=== PATIENT | male | born 1925 | race Caucasian/White ===

== ENCOUNTER 2016-03-11 00:04 | Inpatient (IN) | payer MEDICARE, OTHER ==
[2016-03-11] VITALS (11 sets, daily range): BP systolic 115–181; BP diastolic 52–84; PULSE 52–92; RESP 16–20; TEMP 96.5–98.9; O2SAT 95–100
[~2016-03-11] VITALS: Ht 185.4 cm; Wt 82.3 kg
[~2016-03-11 00:04] MED LIST: CORE12.5 PO; ECOT81TA2 PO; RAMI5CAP7 PO; ROSU10 PO
[2016-03-11] MEDS ORDERED: ASPI81TA11 PO (00:41)
[2016-03-11] MEDS ORDERED: CARV10 PO (00:41)
[2016-03-11] MEDS ORDERED: ATOR20TA15 PO (00:41)
[2016-03-11] MEDS ORDERED: RAMI10CA PO (00:41)
--- NOTE | 2016-03-11 01:03 | RADHPO ---
EXAM DATE/TIME: 03/11/2016 00:37 [facility] COMPARISON: No previous studies available for comparison. INDICATIONS : Right hip pain post fall 2 hours ago MEDICAL HISTORY : None. SURGICAL HISTORY : None. ENCOUNTER: Initial ACUITY: 1 day PAIN SCORE: 10/10 LOCATION: Right hip FINDINGS: Examination of the right hip was performed with AP Pelvis. There is a nondisplaced fracture through t he neck of the proximal right femur. The femoral head remains within the acetabulum. The bony structu res of the pelvis are grossly intact. There are degenerative changes of the lower lumbar spine. There is good alignment of the SI joint and pubic symphysis. CONCLUSION: Nondisplaced fracture through the neck of the proximal right femur. Malcolm Rivera MD on March 11, 2016 at 1:00 Board Certified Radiologist. This report was verified electronically.
[2016-03-11] MEDS ORDERED: MORPHINE SULFATE 4 MG/ML INJ IV PUSH ONE (01:30)
[2016-03-11] MEDS: ONDANSETRON HCL 4 MG/2 ML VIAL IVP ONE ×2 (01:30→03:22)
[2016-03-11] MEDS ORDERED: SODIUM CHLORIDE 0.9% FLUSH 5 ML FLUSH IVF PRN ×2 (01:30→18:15)
[2016-03-11 01:49] LABS: AUTOMATED NEUTROPHIL # 9.3 TH/MM3 (1.8-7.7); BASOPHIL % 0.2 % (0.0-2.0); EOSINOPHIL # 0.2 TH/MM3 (0-0.4); EOSINOPHIL % 1.5 % (0.0-4.0); HEMATOCRIT 27.8 % (39.0-51.0); HEMO FLAGS DIFF FINAL; LYMPH % 8.8 % (9.0-44.0); MEAN CELL VOLUME 99.3 FL (80.0-100.0); MEAN CORPUSCULAR HEMOGLOBIN 33.1 PG (27.0-34.0); MEAN CORPUSCULAR HGB CONC 33.3 % (32.0-36.0); MONO % 9.5 % (0.0-8.0); PLATELET COUNT 144 TH/MM3 (150-450); WHITE BLOOD COUNT 11.6 TH/MM3 (4.0-11.0)
--- NOTE | 2016-03-11 01:51 | RADHPO ---
EXAM DATE/TIME: 03/11/2016 01:30 [facility] COMPARISON: No previous studies available for comparison. INDICATIONS : Trauma to chest post fall today MEDICAL HISTORY : Cardiovascular disease. SURGICAL HISTORY : Stent placement ENCOUNTER: Initial ACUITY: 1 day PAIN SCORE: 0/10 LOCATION: Bilateral chest FINDINGS: A single view of the chest demonstrates the lungs to be symmetrically aerated without evidence of mas s, infiltrate or effusion. The cardiomediastinal contours are unremarkable. Osseous structures are intact. CONCLUSION: No acute disease. Malcolm Rivera MD on March 11, 2016 at 1:50 Board Certified Radiologist. This report was verified electronically.
[2016-03-11 01:55] LABS: CHLORIDE 109 MEQ/L (98-107); POTASSIUM 4.4 MEQ/L (3.5-5.1); SODIUM (NA) 143 MEQ/L (136-145)
--- NOTE | 2016-03-11 01:57 | PD ---
HPI Chief Complaint: Hip Injury Time Seen by Provider: 01:21 Travel History International Travel<30 days: No Contact w/Intl Traveler<30days: No Traveled to known affect area: No History of Present Illness HPI The patient is an 89-year-old male that fell at 11:15 tonight, lost balance and fell, and complains of right hip pain and inability to walk since. His medical problems include heart disease for which he is followed by Dr. Coto, Waldenstroms's macroglobulinemia, elevated cholesterol and possible hypertension. 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 Coto in one year. He is not on any anticoagulants except for aspirin. PFSH Past Medical History High Cholesterol: Yes Diminished Hearing: Yes (BILAT HEARING AIDS) Hypertension: Yes Medical other: Yes (WALDENSTROM'S DISEASE) Ulcer: Yes (macular degeneration) Influenza Vaccination: Yes Past Surgical History Cardiac Surgery: Yes (stents) Other Surgery: Yes (hemmrhoidectomy) Social History Alcohol Use: Yes (OCC) Tobacco Use: No (SMOKED CIGARS IN THE PAST) Substance Use: No Allergies-Medications (Allergen,Severity, Reaction): Coded Allergies: No Known Allergies (Verified , 03/11/16) Reported Meds & Prescriptions Reported Meds & Active Scripts Active Reported Atorvastatin (Atorvastatin Calcium) 20 Mg Tab 20 Mg PO HS Coreg Cr 24 HR (Carvedilol) 10 Mg Cap 10 Mg PO DAILY Ramipril 10 Mg Cap 10 Mg PO BID Aspirin EC (Aspirin) 81 Mg Tabdr 81 Mg PO DAILY Review of Systems Except as stated in HPI: all other systems reviewed are Neg Physical Exam Narrative GENERAL: Well-nourished, well-developed patient in moderate apparent distress with her left knee and left ankle pain. His vital signs are normal. He is alert and oriented 3. He is slightly hard of hearing. SKIN: Warm and dry. HEAD: Normocephalic. EYES: No scleral icterus. No injection or drainage. NECK: Supple, trachea midline. No JVD or lymphadenopathy. CARDIOVASCULAR: Regular rate and rhythm without murmurs, gallops, or rubs. RESPIRATORY: Breath sounds equal bilaterally. No accessory muscle use. Lungs clear to auscultation bilaterally. GASTROINTESTINAL: Abdomen soft, non-tender, nondistended. MUSCULOSKELETAL: No cyanosis, or edema. There is tenderness over the left hip and very minimal foreshortening present. Good capillary refill and pinprick is present distally on the left foot. BACK: Nontender without obvious deformity. No CVA tenderness. Data Data Last Documented VS Vital Signs Date Time Temp Pulse Resp B/P Pulse Ox O2 Delivery O2 Flow Rate FiO2 03/11/16 00:30 76 18 03/11/16 00:18 98.8 115/62 95 Orders Hip, Uni(Ap&Lat) W Ap Pelvis (03/11/16 ) Complete Blood Count With Diff (03/11/16 01:21) Comprehensive Metabolic Panel (03/11/16 01:21) Prothrombin Time / Inr (Pt) (03/11/16 01:21) Act Partial Throm Time (Ptt) (03/11/16 01:21) Urinalysis - C+S If Indicated (03/11/16 01:21) Chest, Single Ap (03/11/16 01:21) Iv Access Insert/Monitor (03/11/16 01:21) Oximetry (03/11/16 01:21) Ecg Monitoring (03/11/16 01:21) Morphine Inj (Morphine Inj) (03/11/16 01:30) Ondansetron Inj (Zofran Inj) (03/11/16 01:30) Sodium Chloride 0.9% Flush (Ns Flush) (03/11/16 01:30) Electrocardiogram (03/11/16 ) MDM Medical Decision Making Medical Screen Exam Complete: Yes Emergency Medical Condition: Yes Medical Record Reviewed: Yes Interpretation(s) X-ray show nondisplaced fracture through the neck of the proximal right femur. Differential Diagnosis Contusion hip, fractured hip, dislocation hiphighly unlikely, fracture pelvis Narrative Course The patient has a fracture of his right hip. He will be put in Emanuel's traction 5 pounds, kept nothing by mouth and admitted to the [facility] service with Dr. Loi Schneider consulting. Physician Communication Physician Communication I discussed the patient with doctors Kevin, Loi Yoon, Dr. Lai and Dr. Garibay. Dr. Cook no longer does hips and referred the patient to the on-call orthopedist. Dr. Brown uses the [facility] service for admissions now. The patient will be admitted to [facility], put in Emanuel's traction5 pounds, Nothing by mouth and admitted to the [facility] service. Diagnosis Primary Impression: Fracture of femoral neck, right Jim Campuzano MD Mar 11, 2016 01:57
[2016-03-11 01:59] LABS: ANION GAP 7 MEQ/L (5-15); APTT (PATIENT) 24.3 SEC (24.3-30.1); BLOOD UREA NITROGEN 30 MG/DL (7-18); PROTHROMBIN TIME - PATIENT 11.4 SEC (9.8-11.6)
[2016-03-11 02:02] LABS: ALT (GPT) 25 U/L (12-78); AST (GOT) 22 U/L (15-37); GLOMERULAR FILTRATION RATE 71 ML/MIN (>89)
[2016-03-11 02:03] LABS: TOTAL BILIRUBIN ADULT 0.5 MG/DL (0.2-1.0)
[2016-03-11 02:04] LABS: ALKALINE PHOSPHATASE 115 U/L (45-117)
[2016-03-11] MEDS ORDERED: SODIUM CHLOR 0.9% 1000 ML INJ 1,000 ML IV SCH ×2 (02:15→09:30)
[2016-03-11 03:06] LABS: BLOOD, URINE NEG (NEG); GLUCOSE,URINE NEG (NEG); KETONE, URINE NEG (NEG); NITRITE,URINE NEG (NEG); PH, URINE 5.5 (5.0-8.5)
[2016-03-11 03:14] LABS: COMMENT (UR) CATH-CULT NOT IND; CULTURE IF INDICATED CATH CULTURE NOT IND; RBC, URINE 0-2 /hpf (0-3); SQUAMOUS EPITHELIAL CELL URINE 0-5 /hpf (0-5); URINE COLOR YELLOW (YELLW/STRAW); WBC, URINE 0-2 /hpf (0-5)
[2016-03-11] MEDS ORDERED: NALOXONE HCL 0.4 MG/ML AMP IV PRN ×2 (03:15→18:15)
[2016-03-11] MEDS ORDERED: SODIUM CHLORIDE 0.9% FLUSH 5 ML FLUSH FLUSH PRN (03:15)
[2016-03-11] MEDS ORDERED: ONDANSETRON HCL 4 MG/2 ML VIAL IVP PRN ×2 (03:15→18:15)
[2016-03-11] MEDS ORDERED: MORPHINE SULFATE 4 MG/ML INJ IV PUSH PRN (03:15)
[2016-03-11] MEDS: MORPHINE SULFATE 4 MG/ML INJ IV PUSH PRN ×4 (03:23→16:03)
[2016-03-11] MEDS: SODIUM CHLORIDE 0.9% FLUSH 5 ML FLUSH FLUSH SCH ×2 (03:23→08:18)
--- NOTE | 2016-03-11 05:09 | HHI.HP ---
[facility] Service [facility] Primary Care Physician Sweetie Rios MD Admission Diagnosis right hip fracture Diagnoses: Travel History International Travel<30 Days: No Contact w/Intl Traveler <30 Da: No Traveled to Known Affected Are: No History of Present Illness History from patient, ER physician communication, and review of medical records. Patient reported that at home, he somehow lost balance and fell onto his right hip. He states that he does have poor balance because of his hearing problems. He however denies loss of consciousness. denies any premonitory symptoms prior to this fall such as chest pain/ palpitations/shortness of breath/focal weakness. Patient is also a gentleman who is quite healthy and lives with his and is still driving. Patient initially presented to [facility] emergency room. Next and workup there revealed right hip fracture. His case was discussed with orthopedics on-call by ER physician. Patient was transferred to the main hospital for surgical intervention. Patient denies any prior history of anesthesia problems. Apart from the above, patient denies any recent fever/nausea/vomiting/diarrhea/ urinary burning or pain on urination. He denies any blood in his stool or in his urine. He is on a baby aspirin at home twice a day. Apart from that he does not take any blood thinners. 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 Did see auxiliary equipment tender. Anemia Past Surgical History Coronary angiogram and stenting Hernia repair Bone marrow biopsies Reported Medications Medications listed in EMRreviewed Allergies: Coded Allergies: No Known Allergies (Verified , 03/11/16) Family History Reports a family history of hypertension Social History Denies smoking/alcohol abuse/drug abuse Physical Exam Vital Signs Vital Signs Date Time Temp Pulse Resp B/P Pulse Ox O2 Delivery O2 Flow Rate FiO2 03/11/16 03:32 88 18 162/84 99 03/11/16 02:45 88 18 166/84 98 Nasal Cannula 2 03/11/16 02:20 18 98 Nasal Cannula 2 03/11/16 01:45 16 95 Room Air 03/11/16 01:45 78 18 159/65 95 Room Air 03/11/16 00:30 76 18 03/11/16 00:18 98.8 76 20 115/62 95 Physical Exam GENERAL: This is a well-nourished, well-developed patient, in no apparent distress. SKIN: No rashes, ecchymoses or lesions. Cool and dry. HEAD: Atraumatic. Normocephalic. No temporal or scalp tenderness. EYES: No scleral icterus. No injection or drainage. ENT: Nose without bleeding, purulent drainage or septal hematoma. Airway patent. NECK: Trachea midline. No JVD CARDIOVASCULAR: Regular rate and rhythm without murmurs, gallops, or rubs. RESPIRATORY: Clear to auscultation. Breath sounds equal bilaterally. No wheezes , rales, or rhonchi. GASTROINTESTINAL: Abdomen soft, non-tender, nondistended. No guarding. MUSCULOSKELETAL: Extremities without clubbing, cyanosis, or edema. No calf tenderness. Right lower extremity in traction. Intact sensation NEUROLOGICAL: Awake and alert. Normal speech. Laboratory Laboratory Tests Test 03/11/16 03/11/16 01:40 03:00 White Blood Count 11.6 Red Blood Count 2.80 Hemoglobin 9.3 Hematocrit 27.8 Mean Corpuscular Volume 99.3 Mean Corpuscular Hemoglobin 33.1 Mean Corpuscular Hemoglobin 33.3 Concent Red Cell Distribution Width 14.0 Platelet Count 144 Mean Platelet Volume 8.5 Neutrophils (%) (Auto) 80.0 Lymphocytes (%) (Auto) 8.8 Monocytes (%) (Auto) 9.5 Eosinophils (%) (Auto) 1.5 Basophils (%) (Auto) 0.2 Neutrophils # (Auto) 9.3 Lymphocytes # (Auto) 1.0 Monocytes # (Auto) 1.1 Eosinophils # (Auto) 0.2 Basophils # (Auto) 0.0 CBC Comment DIFF FINAL Differential Comment Prothrombin Time 11.4 Prothromb Time International 1.0 Ratio Activated Partial 24.3 Thromboplast Time Sodium Level 143 Potassium Level 4.4 Chloride Level 109 Carbon Dioxide Level 27.0 Anion Gap 7 Blood Urea Nitrogen 30 Creatinine 1.00 Estimat Glomerular Filtration 71 Rate Random Glucose 98 Calcium Level 8.7 Total Bilirubin 0.5 Aspartate Amino Transf 22 (AST/SGOT) Alanine Aminotransferase 25 (ALT/SGPT) Alkaline Phosphatase 115 Total Protein 6.4 Albumin 3.3 Urine Color YELLOW Urine Turbidity CLEAR Urine pH 5.5 Urine Specific [place] 1.012 Urine Protein NEG Urine Glucose (UA) NEG Urine Ketones NEG Urine Occult Blood NEG Urine Nitrite NEG Urine Bilirubin NEG Urine Leukocyte Esterase NEG Urine RBC 0-2 Urine WBC 0-2 Urine Squamous Epithelial 0-5 Cells Urine Bacteria NONE Microscopic Urinalysis Comment CATH-CULT NOT IND Result Diagram: 03/11/16 0140 03/11/16 0140 Imaging Last 48 hours Impressions Chest X-Ray 03/11/16 0121 Signed Impressions: Service Date/Time: February 01:30 - CONCLUSION: No acute disease. Malcolm Rivera MD Hip and Pelvis X-Ray 03/11/16 0000 Signed Impressions: Service Date/Time: February 00:37 - CONCLUSION: Nondisplaced fracture through the neck of the proximal right femur. Malcolm Rivera MD Assessment and Plan Problem List: (1) Fracture of femoral neck, right ICD Code: S72.001A Status: Acute Assessment and Plan Impression: mechanical fall Right femoral neck fracture Plan: Orthopedics was consulted. nothing by mouth. OR in a.m. Pain control. Resume home meds. DVT prophylaxiswith SCD. Discussed Condition With Patient, ER physician, patient's nurse Physician Certification 2 Midnight Certification Type: Admission for Inpatient Services Order for Inpatient Services The services are ordered in accordance with Medicare regulations or non- Medicare payer requirements, as applicable. In the case of services not specified as inpatient-only, they are appropriately provided as inpatient services in accordance with the 2-midnight benchmark. Estimated LOS (days): 3 days is the estimated time the patient will need to remain in the hospital, assuming treatment plan goals are met and no additional complications. Post-Hospital Plan: Not yet determined Eliseo Garibay MD Mar 11, 2016 05:09
[2016-03-11] MEDS: RAMIPRIL 5 MG CAP PO SCH ×2 (08:17→22:17)
[2016-03-11] MEDS: CARVEDILOL 3.125 MG TAB PO SCH ×2 (08:17→22:17)
--- NOTE | 2016-03-11 09:29 | HHI.PR ---
Subjective Remarks in no acute distress. pain to the right hip is moderate. d/w the RN. Objective Vitals Vital Signs Date Time Temp Pulse Resp B/P Pulse Ox O2 Delivery O2 Flow Rate FiO2 03/11/16 08:00 98.9 85 20 146/65 96 03/11/16 04:00 96.7 92 20 181/79 95 03/11/16 03:32 88 18 162/84 99 03/11/16 02:45 88 18 166/84 98 Nasal Cannula 2 03/11/16 02:20 18 98 Nasal Cannula 2 03/11/16 01:45 16 95 Room Air 03/11/16 01:45 78 18 159/65 95 Room Air 03/11/16 00:30 76 18 03/11/16 00:18 98.8 76 20 115/62 95 I/O 03/10/16 03/10/16 03/10/16 03/11/16 03/11/16 03/11/16 07:00 15:00 23:00 07:00 15:00 23:00 Intake Total 1000 ml Balance 1000 ml Intake IV Total 1000 ml Result Diagram: 03/11/16 0140 03/11/16 0140 Imaging Last Impressions Chest X-Ray 03/11/16 0121 Signed Impressions: Service Date/Time: February 01:30 - CONCLUSION: No acute disease. Malcolm Rivera MD Hip and Pelvis X-Ray 03/11/16 0000 Signed Impressions: Service Date/Time: February 00:37 - CONCLUSION: Nondisplaced fracture through the neck of the proximal right femur. Malcolm Rivera MD Objective Remarks GENERAL: This is a well-nourished, well-developed patient, in no apparent distress. CARDIOVASCULAR: Regular rate and regular rhythm without murmurs, gallops, or rubs. RESPIRATORY: Clear to auscultation. Breath sounds equal bilaterally. No wheezes , rales, or rhonchi. GASTROINTESTINAL: Abdomen soft, non-tender, nondistended. Normal, active bowel sounds MUSCULOSKELETAL: Extremities without clubbing, cyanosis, or edema. NEURO: Alert & Oriented x4 to person, place, time, situation. Moves all ext x4 Procedures none Medications and IVs Current Medications Morphine Sulfate (Morphine Inj) 4 mg ONCE ONCE IV PUSH ; Start 03/11/16 at 01: 30; Stop 03/11/16 at 01:31; Status DC Ondansetron HCl (Zofran Inj) 4 mg ONCE ONCE IVP Last administered on 03:22; Start 03/11/16 at 01:30; Stop 03/11/16 at 01:31; Status DC IV Flush 2 ml 2 ml UNSCH PRN IVF FLUSH AFTER USING IV ACCESS; Start 03/11/16 at 01:30; Stop 03/11/16 at 03:19; Status DC Sodium Chloride (NS 1000 ml Inj) 1,000 ml @ 2,000 mls/hr Q30M IV Last administered on 03/11/16 02:18; Start 03/11/16 at 02:15; Stop 03/11/16 at 02:44 ; Status DC IV Flush (NS Flush) 2 ml UNSCH PRN FLUSH FLUSH AFTER USING IV ACCESS; Start at 03:15 IV Flush (NS Flush) 2 ml BID FLUSH Last administered on 03/11/16 08:18; Start 03/11/16 at 09:00 Ondansetron HCl (Zofran Inj) 4 mg Q6H PRN IVP NAUSEA OR VOMITING; Start at 03:15 Naloxone HCl (Narcan Inj) 0.4 mg UNSCH PRN IV SEE LABEL COMMENTS; Start at 03:15 Morphine Sulfate (Morphine Inj) 2 mg Q3H PRN IV PUSH pain >5; Start 03/11/16 at 03:15; Stop 03/11/16 at 03:15; Status DC Atorvastatin Calcium (Lipitor) 20 mg HS PO ; Start 03/11/16 at 21:00 Ramipril (Altace) 10 mg BID PO Last administered on 03/11/16 08:17; Start at 09:00 Carvedilol (Coreg) 3.125 mg BID PO Last administered on 03/11/16 08:17; Start 03/11/16 at 09:00 Morphine Sulfate (Morphine Inj) 1 mg Q3H PRN IV PUSH pain >5 Last administered on 03/11/16 03:23; Start 03/11/16 at 03:15 A/P Assessment and Plan A/P - right hip fracture after a fall NPO for now- start IV fluid- continue pain control and consult ortho -CAD- s/p stent placement; hold aspirin- continue other home meds -DVT prophylaxis; SCD's till ortho evaluation. Jay Newell MD Mar 11, 2016 09:29
[2016-03-11] MEDS ORDERED: ENALAPRILAT 1.25 MG/ML VIAL IV PUSH PRN (09:30)
[2016-03-11] MEDS ORDERED: GENTAMICIN SULFATE 80 MG/2 ML VIAL ONE (10:44)
[2016-03-11] MEDS ORDERED: PROPOFOL 200 MG/20 ML AMP IV ONE (12:00)
[2016-03-11] MEDS ORDERED: ePHEDrine/NS 25 MG/5 ML SYR IV ONE (12:00)
[2016-03-11] MEDS ORDERED: PHENYLEPH/NS 1000 MCG/10 ML SYR IV ONE (12:00)
[2016-03-11] MEDS ORDERED: NEOSTIGMINE 3 MG/3 ML SYR IV ONE (12:00)
[2016-03-11] MEDS ORDERED: LACTATED RINGER'S 1000 ML INJ 2,000 ML IV ONE (13:00)
[2016-03-11] MEDS ORDERED: ONDANSETRON HCL 4 MG/2 ML VIAL IV PUSH ONE (13:00)
--- NOTE | 2016-03-11 16:21 | EKG ---
Date Performed: 03/11/2016 Time Performed: 01:43:24 PTAGE: 89 years EKG: Sinus rhythm Left bundle branch block Compared to prior tracing no significant change Abnormal ECG PREVIOUS TRACING : 09/21/2006 11.25 DOCTOR: Vamsi Oconnor Interpretating Date/Time 03/11/2016 16:19:54
[2016-03-11] MEDS: LACTATED RINGER'S 1000 ML INJ 1,000 ML IV SCH (18:05)
[2016-03-11] MEDS ORDERED: NORC5TAB PO (18:08)
[2016-03-11] MEDS ORDERED: XARE10TA PO (18:09)
[2016-03-11] MEDS ORDERED: ACETAMINOPHEN/HYDROcodone 325 MG/5 MG TAB PO PRN (18:15)
[2016-03-11] MEDS ORDERED: ALUMINUM/MAGNESIUM/SIMETH 30 ML CUP PO PRN (18:15)
[2016-03-11] MEDS ORDERED: BISACODYL 10 MG SUPP PR PRN (18:15)
[2016-03-11] MEDS ORDERED: TEMAZEPAM 15 MG CAP PO PRN (18:15)
[2016-03-11] MEDS ORDERED: MORPHINE SULFATE 30 MG/30 ML PCA IV SCH (18:15)
[2016-03-11] MEDS ORDERED: MORPHINE SULFATE 8 MG/ML INJ IM PRN (18:15)
[2016-03-11] MEDS ORDERED: Post-op Orders (for Pharmacy) MISC XX ONE (18:15)
[2016-03-11] MEDS ORDERED: GENTAMICIN SULFATE 80 MG/2 ML VIAL IRRIGATION ONE (19:06)
--- NOTE | 2016-03-11 19:21 | PD.OP ---
cc: Loi Freedman MD Operative Report Date of Surgery: Mar 11, 2016 Preoperative Diagnosis: Fracture right femoral neck, subcapital Postoperative Diagnosis: Same Procedure: Right hip bipolar hemiarthroplasty, cemented Anesthesia: Gen. Surgeon: Loi Freedman Flight Attendant Inflight Services(s): RICHIE Castillo Operation and Findings: EBL: 800 cc INDICATION: This patient is an 89-year-old white male who fell sustaining a displaced right subcapital femoral neck fracture. He presents for surgical treatment. NOTE: Tammie Castillo PA-C was present for the entire surgical procedure as my nurse first aid. In my medical opinion her skill and care was necessary for the proper management of this patient. COMPONENTS: COMPANY: [employer] CUP: Bipolar, 57 mm STEM: Size 5, [place], cemented HEAD: 28 mm, + 5 neck length, 14 taper PROCEDURE: This patient was brought to the operating room and anesthetized in the supine position and positioned on the routine table in the clean air suite. The patient was then rolled to a right side up lateral position and held with a Biomet hip positioner. The right hip and leg was scrubbed with alcohol followed by Hibiclens followed by chloro prep and draped sterilely. A timeout was done and antibiotics were given within a routine time window. A 4 inch incision was made starting along the posterior one third of the greater trochanter. The iliotibial band was opened in line with the incision. The Charnley retractors were positioned. The posterior capsule and external rotators were taken down together in a sleeve. The fracture was exposed. The head was removed. The neck was cut at the right location. The acetabulum was inspected. All loose bone fragments were removed. Retractors were positioned allowing good visualization of the proximal femur. A box osteotome was utilized followed by progressive broaching for the stem. This was progressively broached until the final size stem.. A trial reduction showed adequate fit with the final bipolar head and neck length. Stability was excellent. Offset was satisfactory. Leg length was reestablished. At 90 of flexion it was stable to 70 of internal rotation. The hip could not be subluxed anteriorly. The canal was irrigated copiously. This was then plugged with a #4 [place] cement restrictor. 2 packs of methylmethacrylate were mixed on the back table. The canal was irrigated and dried. The cement was injected and pressurized. The final stem was inserted and the cement was allowed to dry. The final head and bipolar component was assembled and impacted. The hip was reduced and stability, offset and leg length was as previously noted. The posterior capsule and external rotators were repaired through bone with interrupted #2 Tycron sutures. The piriformis muscle was repaired with the same. The iliotibial band with interrupted #1 Vicryl sutures. Subcutaneous tissue was approximated with 2-0 Vicryl suture and skin with running intradermal 3-0 Vicryl followed by Steri-Strips and benzoin. A sterile dressing was applied.. The sponge count needle counts and instrument counts were all correct. The patient was awakened and taken to the recovery room in satisfactory condition FINDINGS: This patient had a moderate amount of bleeding which was felt be related to the patient's use of aspirin on a daily basis. Most of the bleeding was from the canal. The wound was dry at the end of the procedure. Stability was excellent. No complication was appreciated. The sciatic nerve was palpated to be deep from the dissection during the operation. Loi Freedman MD Mar 11, 2016 19:21
[2016-03-11] MEDS ORDERED: DO NOT ADM ANY ANTICOAGULANT DRUGS XX PRN (19:45)
[2016-03-11] MEDS ORDERED: fentaNYL CITRATE 250 MCG/5 ML AMP ONE (19:57)
--- NOTE | 2016-03-11 20:39 | RADRPT ---
EXAM DATE/TIME: 03/11/2016 19:50 [facility] COMPARISON: No previous studies available for comparison. INDICATIONS : Post hardware placement right hip MEDICAL HISTORY : None. SURGICAL HISTORY : None. ENCOUNTER: Initial ACUITY: 1 day PAIN SCORE: Non-responsive. LOCATION: Right Hip FINDINGS: Single frontal view the right hip reveal total hip are plasty. Hardware is intact alignment is anatom ic. Adjacent pelvis appears unremarkable. CONCLUSION: Satisfactory post right PATRICIA Grzegorz Moran MD on March 11, 2016 at 20:37 Board Certified Radiologist. This report was verified electronically.
[2016-03-11] MEDS: SODIUM CHLORIDE 0.9% FLUSH 5 ML FLUSH IVF SCH (21:00)
[2016-03-11] MEDS: PCA - TOTAL MG MORPHINE DELIVERED PER SHIFT SCH (22:00)
[2016-03-11] MEDS: ATORVASTATIN 20 MG TAB PO SCH (22:17)
[2016-03-12] VITALS (13 sets, daily range): BP systolic 41–132; BP diastolic 44–53; PULSE 71–93; RESP 15–19; TEMP 96.5–100.1; O2SAT 94–100
[2016-03-12] MEDS: PCA - TOTAL MG MORPHINE DELIVERED PER SHIFT SCH (05:28)
[2016-03-12 05:47] LABS: REVIEW FLAG FINAL
[2016-03-12 05:54] LABS: HEMATOCRIT 20.3 % (39.0-51.0)
[2016-03-12] MEDS ORDERED: FUROSEMIDE 20 MG/2 ML VIAL IV ONE (06:15)
[2016-03-12] MEDS ORDERED: SODIUM CHLOR 0.9% 250 ML INJ 250 ML IV ONE (06:15)
[2016-03-12] MEDS: LACTATED RINGER'S 1000 ML INJ 1,000 ML IV SCH ×2 (06:35→19:05)
--- NOTE | 2016-03-12 07:15 | MB ---
cc: JAYJAY EWING DATE OF CONSULTATION 03/11/2016 REASON FOR CONSULTATION Fracture of the right hip. HISTORY This is a very pleasant 89-year-old male who was at home and lost his balance. He fell onto his right hip. The patient does note that he has an inner ear problem and poor balance in general. He denied any loss of consciousness or cardiac type symptoms. He denies any palpitations, chest pain or shortness of breath. He presented to [facility] emergency room and was found to have evidence of a displaced right femoral neck fracture. He was transferred to the [facility] hospital for surgical treatment. I have been asked to see him in consultation regarding the same. PAST MEDICAL HISTORY Significant for: 1. Coronary artery disease 2. Hyperlipidemia 3. Hypertension 4. Waldenstrom's macroglobulinemia 5. Anemia 6. Coronary artery disease with stenting 7. Hernia repair 8. Bone marrow biopsies MEDICATIONS See in the EMR. ALLERGIES None that are known. FAMILY HISTORY Significant for hypertension. SOCIAL HISTORY Denies smoking, alcohol or drug abuse. REVIEW OF SYSTEMS Positive for a balance disorder. Also positive for pain in the region of his right hip. Otherwise no constitutional symptoms. PHYSICAL EXAMINATION Alert, cooperative pleasant elderly male. His is at the bedside. HEENT: Normocephalic, atraumatic. Pupils equal, round, reactive to light. Extraocular motions intact. NECK: Supple. CHEST: Clear. HEART: Regular rate and rhythm. ABDOMEN: Soft and nontender, normoactive bowel sounds. MUSCULOSKELETAL: Right hip is externally rotated. He is not in traction. He has pain with range of motion, mild swelling is seen. He wiggles his toes. X-rays reviewed and review of the radiologist's interpretation shows evidence of a subcapital right femoral neck fracture with moderate displacement. No pathologic changes seen. IMPRESSION Right femoral neck fracture. PLAN Right hip bipolar replacement arthroplasty. CONSENT The risks with surgery including infection, bleeding, loss of motion, continued pain, need for further surgery, neurologic and vascular injury. The patient understands these issues and wishes to press on with surgery as outlined above. MD SHOSHANA Jin/KADEEM /6:06 PM /7:10 AM
--- NOTE | 2016-03-12 07:29 | PD.ORT.PN ---
Subjective Subjective Remarks No significant complaints. Lying in bed. No new areas of complaint Objective Vitals Vital Signs Date Time Temp Pulse Resp B/P Pulse Ox O2 Delivery O2 Flow Rate FiO2 03/12/16 05:28 16 03/12/16 04:00 96.5 88 16 116/53 96 03/12/16 02:54 97 Nasal Cannula 4.00 03/11/16 23:02 83 03/11/16 22:30 96.5 52 16 119/52 100 03/11/16 21:15 97.5 79 16 115/51 97 Nasal Cannula 4 03/11/16 21:00 76 15 118/52 97 Nasal Cannula 4 03/11/16 20:45 84 14 137/62 5 Nasal Cannula 4 03/11/16 20:30 78 14 147/56 94 Nasal Cannula 4 03/11/16 20:29 14 03/11/16 20:15 159/62 Nasal Cannula 4 03/11/16 20:15 80 14 90 Nasal Cannula 4 03/11/16 20:00 85 15 158/67 96 Nasal Cannula 10 03/11/16 19:50 98.5 95 20 147/60 94 Simple Mask 10 03/11/16 16:00 97.3 85 20 121/58 96 03/11/16 12:00 98.6 74 20 119/60 96 03/11/16 08:00 98.9 85 20 146/65 96 I/O 03/11/16 03/11/16 03/11/16 03/12/16 03/12/16 03/12/16 07:00 15:00 23:00 07:00 15:00 23:00 Intake Total 1000 ml 2150 ml 240 ml Output Total 900 ml 475 ml 400 ml Balance 1000 ml -900 ml 1675 ml -160 ml Intake Oral 240 ml IV Total 1000 ml TPN/PPN 150 ml Other 2000 ml Output Urine Total 900 ml 475 ml 400 ml # Bowel Movements 0 0 Result Diagram: 03/12/16 0520 03/11/16 0140 Imaging Last 24 hours Impressions Hip X-Ray 03/11/16 1805 Signed Impressions: Service Date/Time: February 19:50 - CONCLUSION: Satisfactory post right PATRICIA Grzegorz Moran MD Objective Remarks Wound is dry. Mild swelling. No calf tenderness. Neuro exam normal. Dorsalis pedis 1+ Assessment & Plan Ortho Post Op Day #: 1 Problem List: Assessment and Plan Right femoral neck fracture, subcapital. Right bipolar hemiarthroplasty, POD #1. PLAN: DC [employer] Transfused 2 units PRBC. 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
[2016-03-12] MEDS: SODIUM CHLORIDE 0.9% FLUSH 5 ML FLUSH IVF SCH ×2 (09:00→21:16)
[2016-03-12] MEDS: RAMIPRIL 5 MG CAP PO SCH ×2 (09:07→21:16)
[2016-03-12] MEDS: CARVEDILOL 3.125 MG TAB PO SCH ×2 (09:07→21:16)
--- NOTE | 2016-03-12 11:32 | HHI.PR ---
Subjective Remarks resting comfortably with no distress. pain is controlled. at the bedside. Objective Vitals Vital Signs Date Time Temp Pulse Resp B/P Pulse Ox O2 Delivery O2 Flow Rate FiO2 03/12/16 08:00 97.8 80 16 132/50 100 03/12/16 05:28 16 03/12/16 04:00 96.5 88 16 116/53 96 03/12/16 02:54 97 Nasal Cannula 4.00 03/11/16 23:02 83 03/11/16 22:30 96.5 52 16 119/52 100 03/11/16 21:15 97.5 79 16 115/51 97 Nasal Cannula 4 03/11/16 21:00 76 15 118/52 97 Nasal Cannula 4 03/11/16 20:45 84 14 137/62 5 Nasal Cannula 4 03/11/16 20:30 78 14 147/56 94 Nasal Cannula 4 03/11/16 20:29 14 03/11/16 20:15 159/62 Nasal Cannula 4 03/11/16 20:15 80 14 90 Nasal Cannula 4 03/11/16 20:00 85 15 158/67 96 Nasal Cannula 10 03/11/16 19:50 98.5 95 20 147/60 94 Simple Mask 10 03/11/16 16:00 97.3 85 20 121/58 96 03/11/16 12:00 98.6 74 20 119/60 96 I/O 03/11/16 03/11/16 03/11/16 03/12/16 03/12/16 03/12/16 07:00 15:00 23:00 07:00 15:00 23:00 Intake Total 1000 ml 2150 ml 240 ml Output Total 900 ml 475 ml 400 ml Balance 1000 ml -900 ml 1675 ml -160 ml Intake Oral 240 ml IV Total 1000 ml TPN/PPN 150 ml Other 2000 ml Output Urine Total 900 ml 475 ml 400 ml # Bowel Movements 0 0 Result Diagram: 03/12/16 0520 03/11/16 0140 Imaging Last Impressions Hip X-Ray 03/11/16 180 Signed Impressions: Service Date/Time: February 19:50 - CONCLUSION: Satisfactory post right PATRICIA Grzegorz Moran MD Chest X-Ray 03/11/16 0121 Signed Impressions: Service Date/Time: February 01:30 - CONCLUSION: No acute disease. Malcolm Rivera MD Hip and Pelvis X-Ray 03/11/16 0000 Signed Impressions: Service Date/Time: February 00:37 - CONCLUSION: Nondisplaced fracture through the neck of the proximal right femur. Malcolm Rivera MD Objective Remarks GENERAL: This is a well-nourished, well-developed patient, in no apparent distress. CARDIOVASCULAR: Regular rate and regular rhythm without murmurs, gallops, or rubs. RESPIRATORY: Clear to auscultation. Breath sounds equal bilaterally. No wheezes , rales, or rhonchi. GASTROINTESTINAL: Abdomen soft, non-tender, nondistended. Normal, active bowel sounds MUSCULOSKELETAL: Extremities without clubbing, cyanosis, or edema. NEURO: Alert & Oriented x4 to person, place, time, situation. Moves all ext x4 Procedures right hip hemiarthroplasty Medications and IVs Current Medications Morphine Sulfate (Morphine Inj) 4 mg ONCE ONCE IV PUSH ; Start 03/11/16 at 01: 30; Stop 03/11/16 at 01:31; Status DC Ondansetron HCl (Zofran Inj) 4 mg ONCE ONCE IVP Last administered on 03:22; Start 03/11/16 at 01:30; Stop 03/11/16 at 01:31; Status DC IV Flush 2 ml 2 ml UNSCH PRN IVF FLUSH AFTER USING IV ACCESS; Start 03/11/16 at 01:30; Stop 03/11/16 at 03:19; Status DC Sodium Chloride (NS 1000 ml Inj) 1,000 ml @ 2,000 mls/hr Q30M IV Last administered on 03/11/16 02:18; Start 03/11/16 at 02:15; Stop 03/11/16 at 02:44 ; Status DC IV Flush (NS Flush) 2 ml UNSCH PRN FLUSH FLUSH AFTER USING IV ACCESS; Start at 03:15; Stop 03/11/16 at 18:46; Status DC IV Flush (NS Flush) 2 ml BID FLUSH Last administered on 03/11/16 08:18; Start 03/11/16 at 09:00; Stop 03/11/16 at 18:46; Status DC Ondansetron HCl (Zofran Inj) 4 mg Q6H PRN IVP NAUSEA OR VOMITING; Start at 03:15; Stop 03/11/16 at 18:46; Status DC Naloxone HCl (Narcan Inj) 0.4 mg UNSCH PRN IV SEE LABEL COMMENTS; Start at 03:15; Stop 03/11/16 at 18:46; Status DC Morphine Sulfate (Morphine Inj) 2 mg Q3H PRN IV PUSH pain >5; Start 03/11/16 at 03:15; Stop 03/11/16 at 03:15; Status DC Atorvastatin Calcium (Lipitor) 20 mg HS PO Last administered on 03/11/16 22:17 ; Start 03/11/16 at 21:00 Ramipril (Altace) 10 mg BID PO Last administered on 03/12/16 09:07; Start at 09:00 Carvedilol (Coreg) 3.125 mg BID PO Last administered on 03/12/16 09:07; Start 03/11/16 at 09:00 Morphine Sulfate 1 mg 1 mg Q3H PRN IV PUSH pain >5 Last administered on 16:03; Start 03/11/16 at 03:15; Stop 03/11/16 at 18:46; Status DC Sodium Chloride (NS 1000 ml Inj) 1,000 ml @ 75 mls/hr [id number] IV Last administered on 03/11/16 10:17; Start 03/11/16 at 09:30; Stop 03/11/16 at 18:46 ; Status DC Enalaprilat (Vasotec Inj) 1.25 mg Q8H PRN IV PUSH SBP> OR = 180, DBP> OR = 100 ; Start 03/11/16 at 09:30 Gentamicin Sulfate 240 mg 240 mg STK-MED ONCE .ROUTE Last administered on 20:15; Start 03/11/16 at 10:44; Stop 03/11/16 at 11:13; Status DC Lactated Ringer's (Lr 1000 ml Inj) 1,000 ml @ 80 mls/hr [id number] IV ; Start at 18:05 IV Flush (NS Flush) 2 ml UNSCH PRN IVF FLUSH AFTER USING IV ACCESS; Start 03/11 at 18:15 IV Flush 2 ml 2 ml BID IVF ; Start 03/11/16 at 21:00 Cefazolin Sodium/ Sodium Chloride (Ancef Inj/NS Inj) 100 ml @ 200 mls/hr Q6H IV ; Start 03/11/16 at 20:00; Stop 03/11/16 at 20:16; Status DC Miscellaneous Information (Post-op Orders (for Pharmacy)) STAT ONCE XX ; Start 03/11/16 at 18:15; Stop 03/11/16 at 19:34; Status DC Rivaroxaban (Xarelto) 10 mg Q24H PO ; Start 03/12/16 at 18:44 Acetaminophen/ Hydrocodone Bitart ([place] 5-325 Mg) 1 tab Q4H PRN PO PAIN LESS THAN 5 ON SCALE; Start 03/11/16 at 18:15 Acetaminophen/ Hydrocodone Bitart ([place] 5-325 Mg) 2 tab Q4H PRN PO PAIN SCALE 5 TO 10; Start 03/11/16 at 18:15 Ondansetron HCl (Zofran Inj) 4 mg Q6H PRN IVP NAUSEA OR VOMITING; Start at 18:15 Docusate Sodium (Colace) 100 mg BID PO ; Start 03/12/16 at 21:00 Al Hydrox/Mg Hydrox/Simethicone (Mag-Al Plus Susp Liq) 30 ml Q6H PRN PO INDIGESTION; Start 03/11/16 at 18:15 Temazepam (Restoril) 15 mg HS PRN PO SLEEP; Start 03/11/16 at 18:15 Bisacodyl (Dulcolax Supp) 10 mg DAILY PRN [place] CONSTIPATION; Start 03/11/16 at 18 :15 Magnesium Hydroxide (Milk Of Magnesia Liq) 30 ml DAILY PRN PO CONSTIPATION; Start 03/11/16 at 18:15 Naloxone HCl (Narcan Inj) 0.4 mg UNSCH PRN IV RESPIRATORY RATE LESS THAN 10; Start 03/11/16 at 18:15 Morphine Sulfate (Morphine 1 Mg/ ml [employer]) 30 mg UNSCH IV Last administered on t 20:29; Start 03/11/16 at 18:15; Stop 03/12/16 at 07:32; Status DC [employer] Dosage Infused (Pha) 1 Q8HR .XX Last administered on 03/12/16 05:28; Start 03/11/16 at 22:00; Stop 03/12/16 at 07:32; Status DC Morphine Sulfate (Morphine Inj) 5 mg Q4H PRN IM PAIN SCALE 7 TO 10; Start 03/11 at 18:15 Gentamicin Sulfate (Gentamicin Inj) 240 mg STK-MED ONCE IRRIGATION Last administered on 03/11/16 19:06; Start 03/11/16 at 19:06; Stop 03/11/16 at 19:07 ; Status DC Miscellaneous Information ALL NURSING DEPARTME... UNSCH PRN XX SEE LABEL COMMENTS; Start 03/11/16 at 19:45; Stop 03/12/16 at 19:44 Fentanyl Citrate 250 mcg 250 mcg STK-MED ONCE .ROUTE ; Start 03/11/16 at 19:57; Stop 03/11/16 at 19:58; Status DC Cefazolin Sodium 1000 mg/Sodium Chloride 100 ml @ 200 mls/hr Q6H IV Last administered on 03/12/16 09:07; Start 03/12/16 at 02:00; Stop 03/12/16 at 14:29 Sodium Chloride (NS 250 ml Inj) 250 ml @ 15 mls/hr ONCE ONCE IV ; Start at 06:15; Stop 03/12/16 at 22:54 Furosemide (Lasix Inj) 20 mg ONCE ONCE IV ; Start 03/12/16 at 06:15; Stop 03/12 at 06:16; Status DC A/P Assessment and Plan A/P - right hip fracture after a fall s/p right hip hemiarthroplasty- continue with pain control and PT- ortho following. -anemia- post-op; will transfuse with PRBC and monitor H/H -CAD- s/p stent placement; hold aspirin- continue other home meds -DVT prophylaxis; on xarelto-per ortho. Jay Newell MD Mar 12, 2016 11:32
[2016-03-12] MEDS ORDERED: ACETAMINOPHEN 325 MG TAB PO PRN (17:30)
[2016-03-12] MEDS: MAGNESIUM HYDROXIDE SUSP 30 ML CUP PO PRN (17:58)
[2016-03-12] MEDS: RIVAROXABAN 10 MG TAB PO SCH (18:37)
[2016-03-12] MEDS: ATORVASTATIN 20 MG TAB PO SCH (21:16)
[2016-03-12] MEDS: DOCUSATE SODIUM 100 MG CAP PO SCH (21:16)
[2016-03-13] VITALS (8 sets, daily range): BP systolic 106–129; BP diastolic 47–54; PULSE 56–97; RESP 15–20; TEMP 97.2–98.9; O2SAT 96–99
[2016-03-13 06:47] LABS: HEMATOCRIT 23.3 % (39.0-51.0)
[2016-03-13] MEDS: LACTATED RINGER'S 1000 ML INJ 1,000 ML IV SCH ×2 (07:35→20:05)
--- NOTE | 2016-03-13 07:40 | PD.ORT.PN ---
Subjective Subjective Remarks Doing well. MIld to moderate right hip pain. No new radiating leg pain. No CP or SOB. Appetite good. Planning on rehab tomorrow. Objective Vitals Vital Signs Date Time Temp Pulse Resp B/P Pulse Ox O2 Delivery O2 Flow Rate FiO2 03/13/16 04:19 98.2 76 17 124/50 96 03/13/16 01:15 98.7 77 18 116/54 96 03/13/16 00:25 98.9 82 17 106/47 96 03/12/16 21:30 98.2 84 17 109/48 94 03/12/16 20:14 99.3 93 16 41/ 96 03/12/16 17:44 100.0 86 18 130/44 96 03/12/16 17:30 100.0 86 18 130/44 03/12/16 16:09 95 Nasal Cannula 3.00 03/12/16 14:15 100.1 90 19 102/44 96 03/12/16 14:15 100.1 90 19 102/44 96 03/12/16 14:00 100.0 71 15 105/44 95 03/12/16 13:50 95 Nasal Cannula 3.00 03/12/16 13:38 100.0 91 15 105/44 95 03/12/16 12:00 98.8 80 16 111/47 95 03/12/16 08:00 97.8 80 16 132/50 100 I/O 03/12/16 03/12/16 03/12/16 03/13/16 03/13/16 03/13/16 07:00 15:00 23:00 07:00 15:00 23:00 Intake Total 240 ml 1221 ml 240 ml 360 ml Output Total 400 ml 400 ml 350 ml 800 ml Balance -160 ml 821 ml -110 ml -440 ml Intake Oral 240 ml 480 ml 240 ml 360 ml IV Total 741 ml Output Urine Total 400 ml 400 ml 350 ml 800 ml # Bowel Movements 0 0 0 Result Diagram: 03/13/16 0552 03/11/16 0140 Imaging Last 24 hours Impressions Hip X-Ray 03/11/16 1807 Signed Impressions: Service Date/Time: February 19:50 - CONCLUSION: Satisfactory post right PATRICIA Grzegorz Moran MD Objective Remarks Laying in bed, No Acute distress RLE Dressing c/d/i, mild swelling, no erythema thigh and calf both supple, neg homans +motor at, +sens, +nvi DP 2/4 Assessment & Plan Ortho Post Op Day #: 2 Problem List: Assessment and Plan Right femoral neck fracture, subcapital. Right bipolar hemiarthroplasty, POD #2. PLAN: Continue PO pain meds as needed. Transfused 2 units PRBC yesterday. Hg increased from 7.0 to 8.0. Weightbearing as tolerated. Walker as needed. No dressing change Xarelto for anticoagulation Discharge to SNF on Tuesday Stacey Alarcon Mar 13, 2016 07:40
--- NOTE | 2016-03-13 08:23 | HHI.PR ---
Subjective Remarks in no acute distress. pain is controlled. no fever today. no BM yet. Objective Vitals Vital Signs Date Time Temp Pulse Resp B/P Pulse Ox O2 Delivery O2 Flow Rate FiO2 03/13/16 04:19 98.2 76 17 124/50 96 03/13/16 01:15 98.7 77 18 116/54 96 03/13/16 00:25 98.9 82 17 106/47 96 03/12/16 21:30 98.2 84 17 109/48 94 03/12/16 20:14 99.3 93 16 41/ 96 03/12/16 17:44 100.0 86 18 130/44 96 03/12/16 17:30 100.0 86 18 130/44 03/12/16 16:09 95 Nasal Cannula 3.00 03/12/16 14:15 100.1 90 19 102/44 96 03/12/16 14:15 100.1 90 19 102/44 96 03/12/16 14:00 100.0 71 15 105/44 95 03/12/16 13:50 95 Nasal Cannula 3.00 03/12/16 13:38 100.0 91 15 105/44 95 03/12/16 12:00 98.8 80 16 111/47 95 I/O 03/12/16 03/12/16 03/12/16 03/13/16 03/13/16 03/13/16 07:00 15:00 23:00 07:00 15:00 23:00 Intake Total 240 ml 1221 ml 240 ml 360 ml Output Total 400 ml 400 ml 350 ml 800 ml Balance -160 ml 821 ml -110 ml -440 ml Intake Oral 240 ml 480 ml 240 ml 360 ml IV Total 741 ml Output Urine Total 400 ml 400 ml 350 ml 800 ml # Bowel Movements 0 0 0 Result Diagram: 03/13/16 0552 03/11/16 0140 Imaging Last Impressions Hip X-Ray 03/11/16 1805 Signed Impressions: Service Date/Time: February 19:50 - CONCLUSION: Satisfactory post right PATRICIA Grzegorz Moran MD Chest X-Ray 03/11/16 0121 Signed Impressions: Service Date/Time: February 01:30 - CONCLUSION: No acute disease. Malcolm Rivera MD Hip and Pelvis X-Ray 03/11/16 0000 Signed Impressions: Service Date/Time: February 00:37 - CONCLUSION: Nondisplaced fracture through the neck of the proximal right femur. Malcolm Rivera MD Objective Remarks GENERAL: in no apparent distress. CARDIOVASCULAR: Regular rate and regular rhythm without murmurs, gallops, or rubs. RESPIRATORY: Clear to auscultation. Breath sounds equal bilaterally. No wheezes , rales, or rhonchi. GASTROINTESTINAL: Abdomen soft, non-tender, nondistended. Normal, active bowel sounds MUSCULOSKELETAL: Extremities without clubbing, cyanosis, or edema. NEURO: Alert & Oriented x4 to person, place, time, situation. Moves all ext x4 Procedures right hip hemiarthroplasty Medications and IVs Current Medications Morphine Sulfate (Morphine Inj) 4 mg ONCE ONCE IV PUSH ; Start 03/11/16 at 01: 30; Stop 03/11/16 at 01:31; Status DC Ondansetron HCl (Zofran Inj) 4 mg ONCE ONCE IVP Last administered on 03:22; Start 03/11/16 at 01:30; Stop 03/11/16 at 01:31; Status DC IV Flush 2 ml 2 ml UNSCH PRN IVF FLUSH AFTER USING IV ACCESS; Start 03/11/16 at 01:30; Stop 03/11/16 at 03:19; Status DC Sodium Chloride (NS 1000 ml Inj) 1,000 ml @ 2,000 mls/hr Q30M IV Last administered on 03/11/16 02:18; Start 03/11/16 at 02:15; Stop 03/11/16 at 02:44 ; Status DC IV Flush (NS Flush) 2 ml UNSCH PRN FLUSH FLUSH AFTER USING IV ACCESS; Start at 03:15; Stop 03/11/16 at 18:46; Status DC IV Flush (NS Flush) 2 ml BID FLUSH Last administered on 03/11/16 08:18; Start 03/11/16 at 09:00; Stop 03/11/16 at 18:46; Status DC Ondansetron HCl (Zofran Inj) 4 mg Q6H PRN IVP NAUSEA OR VOMITING; Start at 03:15; Stop 03/11/16 at 18:46; Status DC Naloxone HCl (Narcan Inj) 0.4 mg UNSCH PRN IV SEE LABEL COMMENTS; Start at 03:15; Stop 03/11/16 at 18:46; Status DC Morphine Sulfate (Morphine Inj) 2 mg Q3H PRN IV PUSH pain >5; Start 03/11/16 at 03:15; Stop 03/11/16 at 03:15; Status DC Atorvastatin Calcium (Lipitor) 20 mg HS PO Last administered on 03/12/16 21:16 ; Start 03/11/16 at 21:00 Ramipril (Altace) 10 mg BID PO Last administered on 03/12/16 21:16; Start at 09:00 Carvedilol (Coreg) 3.125 mg BID PO Last administered on 03/12/16 21:16; Start 03/11/16 at 09:00 Morphine Sulfate 1 mg 1 mg Q3H PRN IV PUSH pain >5 Last administered on 16:03; Start 03/11/16 at 03:15; Stop 03/11/16 at 18:46; Status DC Sodium Chloride (NS 1000 ml Inj) 1,000 ml @ 75 mls/hr [id number] IV Last administered on 03/11/16 10:17; Start 03/11/16 at 09:30; Stop 03/11/16 at 18:46 ; Status DC Enalaprilat (Vasotec Inj) 1.25 mg Q8H PRN IV PUSH SBP> OR = 180, DBP> OR = 100 ; Start 03/11/16 at 09:30 Gentamicin Sulfate 240 mg 240 mg STK-MED ONCE .ROUTE Last administered on 20:15; Start 03/11/16 at 10:44; Stop 03/11/16 at 11:13; Status DC Lactated Ringer's (Lr 1000 ml Inj) 1,000 ml @ 80 mls/hr [id number] IV ; Start at 18:05 IV Flush (NS Flush) 2 ml UNSCH PRN IVF FLUSH AFTER USING IV ACCESS; Start 03/11 at 18:15 IV Flush 2 ml 2 ml BID IVF Last administered on 03/12/16 21:16; Start at 21:00 Cefazolin Sodium/ Sodium Chloride (Ancef Inj/NS Inj) 100 ml @ 200 mls/hr Q6H IV ; Start 03/11/16 at 20:00; Stop 03/11/16 at 20:16; Status DC Miscellaneous Information (Post-op Orders (for Pharmacy)) STAT ONCE XX ; Start 03/11/16 at 18:15; Stop 03/11/16 at 19:34; Status DC Rivaroxaban (Xarelto) 10 mg Q24H PO Last administered on 03/12/16 18:37; Start 03/12/16 at 18:44 Acetaminophen/ Hydrocodone Bitart ([place] 5-325 Mg) 1 tab Q4H PRN PO FOR PAIN 4 -6; Start 03/11/16 at 18:15 Acetaminophen/ Hydrocodone Bitart ([place] 5-325 Mg) 2 tab Q4H PRN PO PAIN SCALE 7 TO 10; Start 03/11/16 at 18:15 Ondansetron HCl (Zofran Inj) 4 mg Q6H PRN IVP NAUSEA OR VOMITING; Start at 18:15 Docusate Sodium (Colace) 100 mg BID PO Last administered on 03/12/16 21:16; Start 03/12/16 at 21:00 Al Hydrox/Mg Hydrox/Simethicone (Mag-Al Plus Susp Liq) 30 ml Q6H PRN PO INDIGESTION; Start 03/11/16 at 18:15 Temazepam (Restoril) 15 mg HS PRN PO SLEEP; Start 03/11/16 at 18:15 Bisacodyl (Dulcolax Supp) 10 mg DAILY PRN [place] CONSTIPATION; Start 03/11/16 at 18 :15 Magnesium Hydroxide (Milk Of Magnesia Liq) 30 ml DAILY PRN PO CONSTIPATION Last administered on 03/12/16 17:58; Start 03/11/16 at 18:15 Naloxone HCl (Narcan Inj) 0.4 mg UNSCH PRN IV RESPIRATORY RATE LESS THAN 10; Start 03/11/16 at 18:15 Morphine Sulfate (Morphine 1 Mg/ ml [employer]) 30 mg UNSCH IV Last administered on 20:29; Start 03/11/16 at 18:15; Stop 03/12/16 at 07:32; Status DC KETTLE HAND Dosage Infused (Pha) 1 Q8HR .XX Last administered on 03/12/16 05:28; Start 03/11/16 at 22:00; Stop 03/12/16 at 07:32; Status DC Morphine Sulfate (Morphine Inj) 5 mg Q4H PRN IM PAIN SCALE 7 TO 10; Start 03/11 at 18:15 Gentamicin Sulfate (Gentamicin Inj) 240 mg STK-MED ONCE IRRIGATION Last administered on 03/11/16 19:06; Start 03/11/16 at 19:06; Stop 03/11/16 at 19:07 ; Status DC Miscellaneous Information ALL NURSING DEPARTME... UNSCH PRN XX SEE LABEL COMMENTS; Start 03/11/16 at 19:45; Stop 03/12/16 at 19:44; Status DC Fentanyl Citrate 250 mcg 250 mcg STK-MED ONCE .ROUTE ; Start 03/11/16 at 19:57; Stop 03/11/16 at 19:58; Status DC Cefazolin Sodium 1000 mg/Sodium Chloride 100 ml @ 200 mls/hr Q6H IV Last administered on 03/12/16 13:33; Start 03/12/16 at 02:00; Stop 03/12/16 at 14:29 ; Status DC Sodium Chloride (NS 250 ml Inj) 250 ml @ 15 mls/hr ONCE ONCE IV ; Start at 06:15; Stop 03/12/16 at 22:54; Status DC Furosemide (Lasix Inj) 20 mg ONCE ONCE IV Last administered on 03/12/16 18:02 ; Start 03/12/16 at 06:15; Stop 03/12/16 at 06:16; Status DC Propofol (Diprivan 200 Mg/20 ml Inj) 200 mg STK-MED ONCE IV ; Start 03/11/16 at 12:00; Stop 03/12/16 at 13:47; Status DC Ephedrine Sulfate (ePHEDrine/NS 25 MG/5 ML SYR) 25 mg STK-MED ONCE IV ; Start at 12:00; Stop 03/12/16 at 13:47; Status DC Neostigmine Methylsulfate (Prostigmin Inj) 3 mg STK-MED ONCE IV ; Start at 12:00; Stop 03/12/16 at 13:47; Status DC Phenylephrine HCl (Neosynephrine/ NS 1000 Mcg/10ml Syr) 1,000 mcg STK-MED ONCE IV ; Start 03/11/16 at 12:00; Stop 03/12/16 at 13:47; Status DC Acetaminophen (Tylenol) 650 mg Q4H PRN PO PAIN 1-3 Last administered on t 17:59; Start 03/12/16 at 17:30 A/P Assessment and Plan A/P - right hip fracture after a fall s/p right hip hemiarthroplasty- continue with pain control and PT- ortho following. -anemia- post-op; improved after PRBC transfusion. -CAD- s/p stent placement; hold aspirin- continue other home meds -DVT prophylaxis; on xarelto-per ortho. Discharge Planning dc to SNF in am if stable- Jay Newell MD Mar 13, 2016 08:23
[2016-03-13] MEDS ORDERED: ASPI81TA11 PO (08:25)
--- NOTE | 2016-03-13 08:25 | HHI.DCPOC ---
Discharge Care Plan Your Health Problems Are: Difficulty with ADL Goals to Promote Your Health * To prevent worsening of your condition and complications * To maintain your health at the optimal level Directions to Meet Your Goals Take your medications as prescribed Follow your dietary instruction Follow activity as directed Keep your appointments as scheduled Take your immunizations and boosters as scheduled If your symptoms worsen call your PCP, if no PCP go to Urgent Care Center or Emergency Room Smoking is Dangerous to Your Health. Avoid second hand smoke Call the 24-hour hour crisis hotline for domestic abuse at Jay Newell MD Mar 13, 2016 08:25
[2016-03-13] MEDS: RAMIPRIL 5 MG CAP PO SCH ×2 (09:00→22:52)
[2016-03-13] MEDS: CARVEDILOL 3.125 MG TAB PO SCH ×2 (10:18→22:51)
[2016-03-13] MEDS: MAGNESIUM HYDROXIDE SUSP 30 ML CUP PO PRN (10:18)
[2016-03-13] MEDS: SODIUM CHLORIDE 0.9% FLUSH 5 ML FLUSH IVF SCH ×2 (10:19→22:52)
[2016-03-13] MEDS: DOCUSATE SODIUM 100 MG CAP PO SCH ×2 (10:19→22:53)
[2016-03-13] MEDS: ACETAMINOPHEN/HYDROcodone 325 MG/5 MG TAB PO PRN ×2 (10:23→14:57)
[2016-03-13] MEDS: RIVAROXABAN 10 MG TAB PO SCH (18:48)
[2016-03-13] MEDS: ATORVASTATIN 20 MG TAB PO SCH (22:52)
[2016-03-14] VITALS (8 sets, daily range): BP systolic 91–135; BP diastolic 40–58; PULSE 50–77; RESP 16–18; TEMP 97.3–99.5; O2SAT 95–98
--- NOTE | 2016-03-14 07:59 | PD.ORT.PN ---
Subjective Subjective Remarks Still doing well. Mild to moderate right hip pain. No new radiating leg pain. No CP or SOB. Appetite good. Lockhart cath continued following surgery per medical. Planning on d/c to rehab today Objective Vitals Vital Signs Date Time Temp Pulse Resp B/P Pulse Ox O2 Delivery O2 Flow Rate FiO2 03/14/16 04:00 97.3 58 16 124/55 97 03/14/16 00:00 99.5 50 16 108/48 98 03/13/16 20:00 97.9 56 16 121/51 97 03/13/16 16:00 97.2 74 20 116/53 96 03/13/16 12:00 97.7 75 15 129/51 99 03/13/16 08:31 98 Nasal Cannula 2.00 03/13/16 08:00 98.6 97 20 112/51 97 I/O 03/13/16 03/13/16 03/13/16 03/14/16 03/14/16 03/14/16 07:00 15:00 23:00 07:00 15:00 23:00 Intake Total 360 ml 480 ml 360 ml 240 ml Output Total 800 ml 400 ml 350 ml 300 ml Balance -440 ml 80 ml 10 ml -60 ml Intake Oral 360 ml 480 ml 360 ml 240 ml Output Urine Total 800 ml 400 ml 350 ml 300 ml # Bowel Movements 0 3 2 Result Diagram: 03/13/16 0552 03/11/16 0140 Imaging Last 24 hours Impressions Hip X-Ray 03/11/16 1805 Signed Impressions: Service Date/Time: February 19:50 - CONCLUSION: Satisfactory post right PATRICIA Grzegorz Moran MD Objective Remarks Laying in bed, No Acute distress RLE Dressing c/d/i, mild swelling, no erythema thigh and calf both supple, neg homans +motor at, +sens, +nvi DP 2/4 Assessment & Plan Ortho Post Op Day #: 3 Problem List: Assessment and Plan Right femoral neck fracture, subcapital. Right bipolar hemiarthroplasty, POD #3. PLAN: Continue PO pain meds as needed. Transfused 2 units PRBC pod#.1 Last hg 8.0. Weightbearing as tolerated. Walker as needed. No dressing change Xarelto for anticoagulation -Lockhart cath continued by medical 03/12 due to 'immobilization'. He is WBAT RLE so he should be able to use a urinal and ambulate short distance. D/C Lockhart today. Discharge to SNF today if med clear. Stacey Alarcon Mar 14, 2016 07:59
--- NOTE | 2016-03-14 08:18 | HHI.PR ---
Subjective Remarks resting comfortably with no distress. pain is controlled. d/w the RN and no acute issues over night. Objective Vitals Vital Signs Date Time Temp Pulse Resp B/P Pulse Ox O2 Delivery O2 Flow Rate FiO2 03/14/16 04:00 97.3 58 16 124/55 97 03/14/16 00:00 99.5 50 16 108/48 98 03/13/16 20:00 97.9 56 16 121/51 97 03/13/16 16:00 97.2 74 20 116/53 96 03/13/16 12:00 97.7 75 15 129/51 99 03/13/16 08:31 98 Nasal Cannula 2.00 I/O 03/13/16 03/13/16 03/13/16 03/14/16 03/14/16 03/14/16 07:00 15:00 23:00 07:00 15:00 23:00 Intake Total 360 ml 480 ml 360 ml 240 ml Output Total 800 ml 400 ml 350 ml 300 ml Balance -440 ml 80 ml 10 ml -60 ml Intake Oral 360 ml 480 ml 360 ml 240 ml Output Urine Total 800 ml 400 ml 350 ml 300 ml # Bowel Movements 0 3 2 Result Diagram: 03/13/16 0552 03/11/16 0140 Imaging Last Impressions Hip X-Ray 03/11/16 1805 Signed Impressions: Service Date/Time: February 19:50 - CONCLUSION: Satisfactory post right PATRICIA Grzegorz Moran MD Chest X-Ray 03/11/16 0121 Signed Impressions: Service Date/Time: February 01:30 - CONCLUSION: No acute disease. Malcolm Rivera MD Hip and Pelvis X-Ray 03/11/16 0000 Signed Impressions: Service Date/Time: February 00:37 - CONCLUSION: Nondisplaced fracture through the neck of the proximal right femur. Malcolm Rviera MD Objective Remarks GENERAL: in no apparent distress. CARDIOVASCULAR: Regular rate and regular rhythm without murmurs, gallops, or rubs. RESPIRATORY: Clear to auscultation. Breath sounds equal bilaterally. No wheezes , rales, or rhonchi. GASTROINTESTINAL: Abdomen soft, non-tender, nondistended. Normal, active bowel sounds MUSCULOSKELETAL: Extremities without clubbing, cyanosis, or edema. NEURO: Alert & Oriented x4 to person, place, time, situation. Moves all ext x4 Procedures right hip hemiarthroplasty Medications and IVs Current Medications Morphine Sulfate (Morphine Inj) 4 mg ONCE ONCE IV PUSH ; Start 03/11/16 at 01: 30; Stop 03/11/16 at 01:31; Status DC Ondansetron HCl (Zofran Inj) 4 mg ONCE ONCE IVP Last administered on 03:22; Start 03/11/16 at 01:30; Stop 03/11/16 at 01:31; Status DC IV Flush 2 ml 2 ml UNSCH PRN IVF FLUSH AFTER USING IV ACCESS; Start 03/11/16 at 01:30; Stop 03/11/16 at 03:19; Status DC Sodium Chloride (NS 1000 ml Inj) 1,000 ml @ 2,000 mls/hr Q30M IV Last administered on 03/11/16 02:18; Start 03/11/16 at 02:15; Stop 03/11/16 at 02:44 ; Status DC IV Flush (NS Flush) 2 ml UNSCH PRN FLUSH FLUSH AFTER USING IV ACCESS; Start at 03:15; Stop 03/11/16 at 18:46; Status DC IV Flush (NS Flush) 2 ml BID FLUSH Last administered on 03/11/16 08:18; Start 03/11/16 at 09:00; Stop 03/11/16 at 18:46; Status DC Ondansetron HCl (Zofran Inj) 4 mg Q6H PRN IVP NAUSEA OR VOMITING; Start at 03:15; Stop 03/11/16 at 18:46; Status DC Naloxone HCl (Narcan Inj) 0.4 mg UNSCH PRN IV SEE LABEL COMMENTS; Start at 03:15; Stop 03/11/16 at 18:46; Status DC Morphine Sulfate (Morphine Inj) 2 mg Q3H PRN IV PUSH pain >5; Start 03/11/16 at 03:15; Stop 03/11/16 at 03:15; Status DC Atorvastatin Calcium (Lipitor) 20 mg HS PO Last administered on 03/13/16 22:52 ; Start 03/11/16 at 21:00 Ramipril (Altace) 10 mg BID PO Last administered on 03/13/16 22:52; Start at 09:00 Carvedilol (Coreg) 3.125 mg BID PO Last administered on 03/13/16 22:51; Start 03/11/16 at 09:00 Morphine Sulfate 1 mg 1 mg Q3H PRN IV PUSH pain >5 Last administered on 16:03; Start 03/11/16 at 03:15; Stop 03/11/16 at 18:46; Status DC Sodium Chloride (NS 1000 ml Inj) 1,000 ml @ 75 mls/hr [id number] IV Last administered on 03/11/16 10:17; Start 03/11/16 at 09:30; Stop 03/11/16 at 18:46 ; Status DC Enalaprilat (Vasotec Inj) 1.25 mg Q8H PRN IV PUSH SBP> OR = 180, DBP> OR = 100 ; Start 03/11/16 at 09:30 Gentamicin Sulfate 240 mg 240 mg STK-MED ONCE .ROUTE Last administered on 20:15; Start 03/11/16 at 10:44; Stop 03/11/16 at 11:13; Status DC Lactated Ringer's (Lr 1000 ml Inj) 1,000 ml @ 80 mls/hr [id number] IV ; Start at 18:05 IV Flush (NS Flush) 2 ml UNSCH PRN IVF FLUSH AFTER USING IV ACCESS; Start 03/11 at 18:15 IV Flush 2 ml 2 ml BID IVF Last administered on 03/13/16 22:52; Start at 21:00 Cefazolin Sodium/ Sodium Chloride (Ancef Inj/NS Inj) 100 ml @ 200 mls/hr Q6H IV ; Start 03/11/16 at 20:00; Stop 03/11/16 at 20:16; Status DC Miscellaneous Information (Post-op Orders (for Pharmacy)) STAT ONCE XX ; Start 03/11/16 at 18:15; Stop 03/11/16 at 19:34; Status DC Rivaroxaban (Xarelto) 10 mg Q24H PO Last administered on 1/28/17at 18:48; Start 03/12/16 at 18:44 Acetaminophen/ Hydrocodone Bitart ([place] 5-325 Mg) 1 tab Q4H PRN PO FOR PAIN 4 -6 Last administered on 03/13/16 14:57; Start 03/11/16 at 18:15 Acetaminophen/ Hydrocodone Bitart ([place] 5-325 Mg) 2 tab Q4H PRN PO PAIN SCALE 7 TO 10; Start 03/11/16 at 18:15 Ondansetron HCl (Zofran Inj) 4 mg Q6H PRN IVP NAUSEA OR VOMITING; Start at 18:15 Docusate Sodium (Colace) 100 mg BID PO Last administered on 03/13/16 22:53; Start 03/12/16 at 21:00 Al Hydrox/Mg Hydrox/Simethicone (Mag-Al Plus Susp Liq) 30 ml Q6H PRN PO INDIGESTION; Start 03/11/16 at 18:15 Temazepam (Restoril) 15 mg HS PRN PO SLEEP; Start 03/11/16 at 18:15 Bisacodyl (Dulcolax Supp) 10 mg DAILY PRN SD CONSTIPATION Last administered on 03/13/16 14:58; Start 03/11/16 at 18:15 Magnesium Hydroxide (Milk Of Magnesia Liq) 30 ml DAILY PRN PO CONSTIPATION Last administered on 03/13/16 10:18; Start 03/11/16 at 18:15 Naloxone HCl (Narcan Inj) 0.4 mg UNSCH PRN IV RESPIRATORY RATE LESS THAN 10; Start 03/11/16 at 18:15 Morphine Sulfate (Morphine 1 Mg/ ml MORNING SHOW HOST) 30 mg UNSCH IV Last administered on 20:29; Start 03/11/16 at 18:15; Stop 03/12/16 at 07:32; Status DC MORNING SHOW HOST Dosage Infused (Pha) 1 Q8HR .XX Last administered on 03/12/16 05:28; Start 03/11/16 at 22:00; Stop 03/12/16 at 07:32; Status DC Morphine Sulfate (Morphine Inj) 5 mg Q4H PRN IM PAIN SCALE 7 TO 10; Start 03/11 at 18:15 Gentamicin Sulfate (Gentamicin Inj) 240 mg STK-MED ONCE IRRIGATION Last administered on 03/11/16 19:06; Start 03/11/16 at 19:06; Stop 03/11/16 at 19:07 ; Status DC Miscellaneous Information ALL NURSING DEPARTME... UNSCH PRN XX SEE LABEL COMMENTS; Start 03/11/16 at 19:45; Stop 03/12/16 at 19:44; Status DC Fentanyl Citrate 250 mcg 250 mcg STK-MED ONCE .ROUTE ; Start 03/11/16 at 19:57; Stop 03/11/16 at 19:58; Status DC Cefazolin Sodium 1000 mg/Sodium Chloride 100 ml @ 200 mls/hr Q6H IV Last administered on 03/12/16 13:33; Start 03/12/16 at 02:00; Stop 03/12/16 at 14:29 ; Status DC Sodium Chloride (NS 250 ml Inj) 250 ml @ 15 mls/hr ONCE ONCE IV ; Start at 06:15; Stop 03/12/16 at 22:54; Status DC Furosemide (Lasix Inj) 20 mg ONCE ONCE IV Last administered on 03/12/16 18:02 ; Start 03/12/16 at 06:15; Stop 03/12/16 at 06:16; Status DC Propofol (Diprivan 200 Mg/20 ml Inj) 200 mg STK-MED ONCE IV ; Start 03/11/16 at 12:00; Stop 03/12/16 at 13:47; Status DC Ephedrine Sulfate (ePHEDrine/NS 25 MG/5 ML SYR) 25 mg STK-MED ONCE IV ; Start at 12:00; Stop 03/12/16 at 13:47; Status DC Neostigmine Methylsulfate (Prostigmin Inj) 3 mg STK-MED ONCE IV ; Start at 12:00; Stop 03/12/16 at 13:47; Status DC Phenylephrine HCl (Neosynephrine/ NS 1000 Mcg/10ml Syr) 1,000 mcg STK-MED ONCE IV ; Start 03/11/16 at 12:00; Stop 03/12/16 at 13:47; Status DC Acetaminophen (Tylenol) 650 mg Q4H PRN PO PAIN 1-3 Last administered on 17:59; Start 03/12/16 at 17:30 A/P Assessment and Plan A/P - right hip fracture after a fall s/p right hip hemiarthroplasty- continue with pain control and PT- ortho following. -anemia- post-op; improved after PRBC transfusion. -CAD- s/p stent placement; hold aspirin- continue other home meds -DVT prophylaxis; on xarelto-per ortho. dc avila cath Discharge Planning dc to SNF today after he voids. see med list. f/u with pcp and ortho. d/w the patient, RN and ortho. Jay Newell MD Mar 14, 2016 08:17
--- NOTE | 2016-03-14 08:19 | HHI.DS ---
Discharge Summary Admission Date Mar 11, 2016 at 02:01 Discharge Date: Mar 14, 2016 Admitting Diagnosis right hip fracture (1) Fracture of femoral neck, right ICD Code: S72.001A Diagnosis: Principal Procedures right hip hemiarthroplasty Brief History - From Admission History from patient, ER physician communication, and review of medical records. Patient reported that at home, he somehow lost balance and fell onto his right hip. He states that he does have poor balance because of his hearing problems. He however denies loss of consciousness. denies any premonitory symptoms prior to this fall such as chest pain/ palpitations/shortness of breath/focal weakness. Patient is also a gentleman who is quite healthy and lives with his and is still driving. Patient initially presented to [facility] emergency room. Next and workup there revealed right hip fracture. His case was discussed with orthopedics on-call by ER physician. Patient was transferred to the main hospital for surgical intervention. Patient denies any prior history of anesthesia problems. Apart from the above, patient denies any recent fever/nausea/vomiting/diarrhea/ urinary burning or pain on urination. He denies any blood in his stool or in his urine. He is on a baby aspirin at home twice a day. Apart from that he does not take any blood thinners. CBC/BMP: 03/13/16 0552 03/11/16 0140 Significant Findings Laboratory Tests Test 03/12/16 03/13/16 05:20 05:52 Hemoglobin 7.0 GM/DL 8.0 GM/DL (13.0-17.0) (13.0-17.0) Hematocrit 20.3 % 23.3 % (39.0-51.0) (39.0-51.0) Imaging Last Impressions Hip X-Ray 03/11/16 180 Signed Impressions: Service Date/Time: February 19:50 - CONCLUSION: Satisfactory post right PATRICIA Grzegorz Moran MD Chest X-Ray 03/11/16 0121 Signed Impressions: Service Date/Time: February 01:30 - CONCLUSION: No acute disease. Malcolm Rivera MD Hip and Pelvis X-Ray 03/11/16 0000 Signed Impressions: Service Date/Time: February 00:37 - CONCLUSION: Nondisplaced fracture through the neck of the proximal right femur. Malcolm Rivera MD PE at Discharge GENERAL: in no apparent distress. CARDIOVASCULAR: Regular rate and regular rhythm without murmurs, gallops, or rubs. RESPIRATORY: Clear to auscultation. Breath sounds equal bilaterally. No wheezes , rales, or rhonchi. GASTROINTESTINAL: Abdomen soft, non-tender, nondistended. Normal, active bowel sounds MUSCULOSKELETAL: Extremities without clubbing, cyanosis, or edema. NEURO: Alert & Oriented x4 to person, place, time, situation. Moves all ext x4 Hospital Course - right hip fracture after a fall s/p right hip hemiarthroplasty- continue with pain control and PT- ortho following. -anemia- post-op; improved after PRBC transfusion. -CAD- s/p stent placement; hold aspirin- continue other home meds -DVT prophylaxis; on xarelto-per ortho. Pt Condition on Discharge: Good Discharge Disposition: Discharge to SNF Discharge Time: <= 30 minutes Discharge Instructions DIET: Follow Instructions for: Heart Healthy Diet Activities you can perform: Regular-No Restrictions Other Activity Instructions: instructions per ortho. Follow up Referrals: Appointment for Follow Up - 2 Weeks with Loi Freedman MD PCP Follow-up New Medications: Hydrocodone-Acetaminophen ([place]) 5-325 mg Tab 1 TAB PO Q4H PRN PAIN #50 Ref 0 TAB Rivaroxaban (Xarelto) 10 Mg Tab 10 MG PO Q24H Prevent Blood Clot #25 TAB Changed Medications: Aspirin DR (Aspirin EC) 81 Mg Tabdr 81 MG PO DAILY resume aspirin after the course of Xarelto has been completed. cad Days 30 Ref 0 TAB (Medication details modified) Continued Medications: Atorvastatin (Atorvastatin) 20 Mg Tab 20 MG PO HS Cholesterol Management #30 Ref 0 TAB Carvedilol ER 24 HR (Coreg Cr 24 HR) 10 Mg Cap 10 MG PO DAILY #30 Ref 0 CAP Ramipril (Ramipril) 10 Mg Cap 10 MG PO BID #60 Ref 0 CAP Jay Newell MD Mar 14, 2016 08:18
[2016-03-14] MEDS: LACTATED RINGER'S 1000 ML INJ 1,000 ML IV SCH (08:35)
[2016-03-14] MEDS: ACETAMINOPHEN/HYDROcodone 325 MG/5 MG TAB PO PRN ×2 (08:58→17:31)
[2016-03-14] MEDS: DOCUSATE SODIUM 100 MG CAP PO SCH (08:59)
[2016-03-14] MEDS: SODIUM CHLORIDE 0.9% FLUSH 5 ML FLUSH IVF SCH (08:59)
[2016-03-14] MEDS: CARVEDILOL 3.125 MG TAB PO SCH (08:59)
[2016-03-14] MEDS: RAMIPRIL 5 MG CAP PO SCH (08:59)
[2016-03-14] MEDS: RIVAROXABAN 10 MG TAB PO SCH (17:31)
== END 2016-03-14 19:01 | DRG 470 ==
LOC: PHEFT 00:04 → PHEDA 02:01 → NEPFCDU 03:57 → N06B 21:30 → N06A 03-12 20:21
PROVIDERS: ADMIT Internal Medicine; ATTEND Internal Medicine
PROC: 0SRR0J9 Replacement of Right Hip Joint, Femoral Surface with Synthetic Substitute, Cemented, Open Approach (ICD-10-PCS; principal; 2016-03-11 17:37)
PROC: 30233N1 Transfusion of Nonautologous Red Blood Cells into Peripheral Vein, Percutaneous Approach (ICD-10-PCS; 2016-03-12)
DX: S72.011A Unspecified intracapsular fracture of right femur, initial encounter for closed fracture (principal); D64.9 Anemia, unspecified; C88.0 Waldenstrom macroglobulinemia; I10 Essential (primary) hypertension; E78.5 Hyperlipidemia, unspecified; I25.10 Atherosclerotic heart disease of native coronary artery without angina pectoris; H35.30 Unspecified macular degeneration; H91.93 Unspecified hearing loss, bilateral; W18.30XA Fall on same level, unspecified, initial encounter; Y92.009 Unspecified place in unspecified non-institutional (private) residence as the place of occurrence of the external cause; Z95.5 Presence of coronary angioplasty implant and graft; Z79.82 Long term (current) use of aspirin
CPT/HCPCS: 36430; 71010; 73501; 73502; 80053; 81001; 85014; 85018; 85025; 85610; 85730; 86850; 86900; 86901; 86920; 88305; 88311; 93005; 94150; C1776; J0690; J1580; J1940; J2270; J2370; J2405; J2710; J3010; J7030; J7120; P9016